=== PATIENT | female | born 1935 | race African-American/Black ===

== ENCOUNTER 2018-03-19 18:12 | Observation (INO) ==
[2018-03-19] MEDS ORDERED: diazePAM 2 MG Tablet PO ONE (18:38)
--- NOTE | 2018-03-19 18:59 | CT ---
EXAM DATE: 03/19/2018 6:53 PM EST AGE/SEX: 82 years / Female INDICATIONS: STROKE ALERT. Double vision. CLINICAL DATA: This is the patient's initial encounter. Patient reports that signs and symptoms have been present for 1 day and indicates a pain score of 0/10. MEDICAL/SURGICAL HISTORY: None. None. RADIATION DOSE: 56.35 CTDI (mGy) COMPARISON: [facility], CTA HEAD W CONTRAST W 3D, 03/19/2018. . TECHNIQUE: CT of the head without contrast. Using automated exposure control and adjustment of the mA and/or kV according to patient size, radiation dose was kept as low as reasonably achievable to ob tain optimal diagnostic quality images. DICOM format image data is available electronically for revi ew and comparison. FINDINGS: Cerebrum: Moderate diffuse cerebral atrophy. The ventricles are normal for degree of atrophy. Modera te periventricular white matter hypodensities. No evidence of midline shift, mass lesion, hemorrhage or acute infarction. No extraaxial fluid collections are seen. Posterior Fossa: The cerebellum and brainstem are intact. The 4th ventricle is midline. The cerebe llopontine angle is unremarkable. Extracranial: The visualized portion of the orbits is intact. Skull: The calvaria is intact. No evidence of skull fracture. CONCLUSION: 1. Senescent changes without acute intracranial abnormality. Findings were discussed by Dr. Alexander with Dr. Garcia at 6:58 PM . Electronically signed by: Jabier Martin MD Board Certified Radiologist 03/19/2018 6:58 PM PHILIPPE Foster
--- NOTE | 2018-03-19 19:03 | ED ---
HPI General Chief complaint: Neuro Symptoms/Deficit Stated complaint: nausea & vomit Time Seen by Provider: 03/19/18 18:38 History of Present Illness HPI narrative: 82-year-old female presents emergency department for sudden onset nausea vomiting and difficulty walking since noon today. States she is never had symptoms like this before and also reports double vision. States she just does not feel right. She has a history of diabetes, high blood pressure cholesterol no history of stroke. States symptoms are severe, started at noon today, constant, associated signs symptoms as above. Interestingly patient does not report any vertiginous symptoms and does not feel like the room is spinning. Related Data Home Medications Medication Instructions Recorded Confirmed amlodipine 10 mg PO DAILY 03/19/18 03/19/18 aspirin 81 mg PO DAILY 03/19/18 03/19/18 brimonidine 1 drp EACH EYE Q12HR 03/19/18 03/19/18 cholecalciferol (vitamin D3) 2,000 unit PO DAILY 03/19/18 03/19/18 [Vitamin D3] gabapentin 600 mg PO DAILY 03/19/18 03/19/18 hydrochlorothiazide 25 mg PO DAILY 03/19/18 03/19/18 hydroxychloroquine [Plaquenil] 200 mg PO DAILY 03/19/18 03/19/18 insulin aspart U-100 [Novolog 5 unit SUBCUT BID 03/19/18 03/19/18 U-100 Insulin aspart] insulin glargine [Lantus U-100 12 unit SUBCUT DAILY 03/19/18 03/19/18 Insulin] losartan 25 mg PO DAILY 03/19/18 03/19/18 lovastatin 20 mg PO HS 03/19/18 03/19/18 pyridoxine (vitamin B6) [Vitamin 100 mg PO DAILY 03/19/18 03/19/18 B-6] timolol maleate [Timoptic] 1 drp EACH EYE DAILY 03/19/18 03/19/18 Allergies Allergy/AdvReac Type Severity Reaction Status Date / Time alendronate sodium Allergy Severe MADE HER Verified 03/19/18 18:53 CRIPPLED, COULN'T GET OUT OF BED lisinopril Allergy Severe COUGH Verified 03/19/18 18:53 meloxicam Allergy Severe Cough Verified 03/19/18 19:19 Review of Systems ROS: all other systems reviewed are negative [facility] Family History Family History Other Family history non-contributory Social History Social History Substance History: No History of Abuse Second Hand Smoke Exposure: No Smoking Status: Never smoker How Often Do You Have a Drink Containing Alcohol: Never Recent Travel in [facility] within the Last 8 Weeks: No Recent Out of Country Travel within the Last 8 Weeks: No Immunization History Tetanus Immunization: Unsure Exam Narrative Exam Narrative: GENERAL: Well-developed well-nourished, appears quite uncomfortable full emesis basin SKIN: Focused skin assessment warm/dry. HEAD: Atraumatic. Normocephalic. EYES: Pupils equal and round. No scleral icterus. No injection or drainage. ENT: No nasal bleeding or discharge. Mucous membranes pink and moist. NECK: Trachea midline. No JVD. CARDIOVASCULAR: Regular rate and rhythm. No murmur appreciated. RESPIRATORY: No accessory muscle use. Clear to auscultation. Breath sounds equal bilaterally. GASTROINTESTINAL: Abdomen soft, non-tender, nondistended. Hepatic and splenic margins not palpable. MUSCULOSKELETAL: No obvious deformities. No clubbing. No cyanosis. No edema. NEUROLOGICAL: Cranial nerves II through XII are grossly intact and nonfocal, the area does appear to be 2 beat horizontal nystagmus and may be one beat vertical nystagmus. Her gjxclv-aauj-[id number] test is slow and deliberate bilaterally but the patient does not have any past pointing or intentional tremor. On heel hubbard testing the patient is able to perform heel hubbard testing but again is slow and deliberate. PSYCHIATRIC: Appropriate mood and affect; insight and judgment normal. Course Initial Documented Vital Signs Temperature 97.5 F L 03/19/18 18:24 Pulse Rate 89 03/19/18 18:24 Respiratory Rate 17 03/19/18 18:24 Blood Pressure 181/82 H 03/19/18 18:24 Pulse Oximetry 100 03/19/18 18:24 Last Documented Vital Signs Temperature 99.3 F 03/20/18 11:19 Pulse Rate 71 03/20/18 11:19 Respiratory Rate 16 03/20/18 11:19 Blood Pressure 144/65 H 03/20/18 11:19 Pulse Oximetry 97 03/20/18 11:19 Sign Out Sign Out Data: Patient Sign Out occurred on 03/19/18 at 22:05. Patient's care was discussed, and care was transferred from Rommel Baeza MD to Bijal Yousif MD. Sign Out Comment: BMP->Admit Obs for possible stroke. Last updated by Rommel Baeza MD at 03/19/18 19:31 Post-Handoff Eval: Accepted in transfer of care from Dr. Baeza Medical Decision Making MDM Narrative Medical decision making narrative: Patient room in the emergency department, she has signs symptoms that could represent vertigo or an acute cerebellar stroke. She is never had vertigo before and she is actually not having any vertiginous symptoms. She just reports ataxia double vision and does have a bag full of emesis. My discretion stroke alert was activated. The patient's creatinine was only 1.5 and I did discuss with her the risk of contrast and I think it is reasonable to pursue a CTA and CT perfusion with this patient. Patient was immediately discussed with Dr. Mc he shares my concern and is in route to see the patient. CT non-con of the head and CTA were negative and discussed with Dr. Alexander. She is not a candidate for systemic TPA given the duration of her symptoms. Valium was ordered as well as an MRI and Dr. Mc will help evaluate the patient as well. At 1930 the patient was discussed with Dr. Yousif to follow-up the workup and Dr. Mc recommendations disposition the patient probably. Total NIH is zero. Accepted in transfer of care from Dr. Baeza; Dr. Mc has seen patient at bedside; Dr. Farah has seen patient at bedside and is excepting patient on the behalf of Dr. See for admission. Patient will be admitted to Dr. See CVA/TIA Medical Screen Exam Complete: Yes Emergency Medical Condition: Yes Lab Data Result diagrams: 03/19/18 18:45 03/19/18 21:47 Lab Results 03/19/18 03/19/18 03/19/18 Range/Units 18:40 18:45 18:45 WBC 8.6 (4.0-11.0) th/mm3 RBC 4.30 (4.00-5.30) mil/mm3 Hgb 12.1 (11.6-15.3) gm/dL POC Hgb (Calc) (11.6-15.3) g/dL Hct 36.9 (35.0-46.0) % POC Hct (35-46.0) % MCV 85.7 (80.0-100.0) fL MCH 28.1 (27.0-34.0) pg MCHC 32.8 (32.0-36.0) % RDW 14.2 (11.6-17.2) % Plt Count 265 (150-450) th/mm3 MPV 8.4 (7.0-11.0) fL Neut % (Auto) 63.7 (16.0-70.0) % Lymph % (Auto) 27.0 (9.0-44.0) % [place] % (Auto) 7.9 (0.0-8.0) % Eos % (Auto) 1.0 (0.0-4.0) % Baso % (Auto) 0.4 (0.0-2.0) % Neut # (Auto) 5.5 (1.8-7.7) th/mm3 Lymph # (Auto) 2.3 (1.0-4.8) th/mm3 [place] # (Auto) 0.7 (0.0-0.9) th/mm3 Eos # (Auto) 0.1 (0.0-0.4) th/mm3 Baso # (Auto) 0.0 (0.0-0.2) th/mm3 WBC Differential . Differential Comment Auto diff final PT 10.7 (9.8-11.6) sec INR 1.1 Ratio APTT 27.6 (23.4-31.7) sec Fibrinogen 446 H (227-377) mg/dL POC Sodium (137-144) mmol/L Sodium (136-145) meq/L POC Potassium (3.6-5.0) mmol/L Potassium (3.5-5.1) meq/L POC Chloride (102-111) mmol/L Chloride (98-107) meq/L Carbon Dioxide (21.0-32.0) meq/L Anion Gap (5-15) meq/L POC BUN (5-21) mg/dL BUN (7-18) mg/dL Creatinine (0.50-1.00) mg/dL POC Creatinine (0.6-1.3) mg/dL Estimated GFR (>89) mL/min POC Glucose 182 H (68-110) mg/dl Random Glucose (74-106) mg/dL Hemoglobin A1c (4.3-6.0) % Calcium (8.5-10.1) mg/dL Total Creatine Kinase (26-192) U/L Troponin I (0.02-0.05) ng/mL Triglycerides (42-150) mg/dL Cholesterol (120-200) mg/dL LDL Cholesterol, Calc (0-99) mg/dL HDL Cholesterol (40.0-60.0) mg/dL Cholesterol/HDL Ratio Ratio Beta HCG, Quant (0-5) mIU/mL Urine Color (Yellw/Straw) Urine Clarity (Clear) Urine pH (5.0-8.5) Ur Specific [place] (1.002-1.035) Urine Protein (Neg-Trace) mg/dL Urine Glucose (UA) (Negative) mg/dL Urine Ketones (Negative) mg/dL Urine Occult Blood (Negative) Urine Nitrate (Negative) Urine Bilirubin (Negative) Urine Urobilinogen (Less than 2) mg/dL Ur Leukocyte Esterase (Negative) Urine RBC (0-3) /hpf Urine WBC (0-5) /hpf Ur Squamous Epith Cells (0-5) /hpf Urine Bacteria (None) /hpf Micro UA Comment Ur Microscopic Review Urine Culture Comments Urine Opiates Screen (Neg) Ur Barbiturates Screen (Neg) Ur Amphetamines Screen (Neg) U Benzodiazepines Scrn (Neg) Urine Cocaine Screen (Neg) U Cannabinoids Screen (Neg) Blood Type Blood Type Recheck Antibody Screen 03/19/18 03/19/18 03/19/18 Range/Units 18:45 18:45 20:34 WBC (4.0-11.0) th/mm3 RBC (4.00-5.30) mil/mm3 Hgb (11.6-15.3) gm/dL POC Hgb (Calc) 12.6 (11.6-15.3) g/dL Hct (35.0-46.0) % POC Hct 37.0 (35-46.0) % MCV (80.0-100.0) fL MCH (27.0-34.0) pg MCHC (32.0-36.0) % RDW (11.6-17.2) % Plt Count (150-450) th/mm3 MPV (7.0-11.0) fL Neut % (Auto) (16.0-70.0) % Lymph % (Auto) (9.0-44.0) % [place] % (Auto) (0.0-8.0) % Eos % (Auto) (0.0-4.0) % Baso % (Auto) (0.0-2.0) % Neut # (Auto) (1.8-7.7) th/mm3 Lymph # (Auto) (1.0-4.8) th/mm3 [place] # (Auto) (0.0-0.9) th/mm3 Eos # (Auto) (0.0-0.4) th/mm3 Baso # (Auto) (0.0-0.2) th/mm3 WBC Differential Differential Comment PT (9.8-11.6) sec INR Ratio APTT (23.4-31.7) sec Fibrinogen (227-377) mg/dL POC Sodium 138 (137-144) mmol/L Sodium (136-145) meq/L POC Potassium 4.4 (3.6-5.0) mmol/L Potassium (3.5-5.1) meq/L POC Chloride 100 L (102-111) mmol/L Chloride (98-107) meq/L Carbon Dioxide (21.0-32.0) meq/L Anion Gap (5-15) meq/L POC BUN 22 H (5-21) mg/dL BUN (7-18) mg/dL Creatinine (0.50-1.00) mg/dL POC Creatinine 1.5 H (0.6-1.3) mg/dL Estimated GFR (>89) mL/min POC Glucose 218 H (68-110) mg/dl Random Glucose (74-106) mg/dL Hemoglobin A1c (4.3-6.0) % Calcium (8.5-10.1) mg/dL Total Creatine Kinase 151 (26-192) U/L Troponin I Less than 0.02 L (0.02-0.05) ng/mL Triglycerides (42-150) mg/dL Cholesterol (120-200) mg/dL LDL Cholesterol, Calc (0-99) mg/dL HDL Cholesterol (40.0-60.0) mg/dL Cholesterol/HDL Ratio Ratio Beta HCG, Quant 4 (0-5) mIU/mL Urine Color (Yellw/Straw) Urine Clarity (Clear) Urine pH (5.0-8.5) Ur Specific [place] (1.002-1.035) Urine Protein (Neg-Trace) mg/dL Urine Glucose (UA) (Negative) mg/dL Urine Ketones (Negative) mg/dL Urine Occult Blood (Negative) Urine Nitrate (Negative) Urine Bilirubin (Negative) Urine Urobilinogen (Less than 2) mg/dL Ur Leukocyte Esterase (Negative) Urine RBC (0-3) /hpf Urine WBC (0-5) /hpf Ur Squamous Epith Cells (0-5) /hpf Urine Bacteria (None) /hpf Micro UA Comment Ur Microscopic Review Urine Culture Comments Urine Opiates Screen Neg (Neg) Ur Barbiturates Screen Neg (Neg) Ur Amphetamines Screen Neg (Neg) U Benzodiazepines Scrn Neg (Neg) Urine Cocaine Screen Neg (Neg) U Cannabinoids Screen Neg (Neg) Blood Type A Positive Blood Type Recheck Not needed Antibody Screen Negative 03/19/18 03/19/18 03/20/18 Range/Units 20:34 21:47 01:33 WBC (4.0-11.0) th/mm3 RBC (4.00-5.30) mil/mm3 Hgb (11.6-15.3) gm/dL POC Hgb (Calc) (11.6-15.3) g/dL Hct (35.0-46.0) % POC Hct (35-46.0) % MCV (80.0-100.0) fL MCH (27.0-34.0) pg MCHC (32.0-36.0) % RDW (11.6-17.2) % Plt Count (150-450) th/mm3 MPV (7.0-11.0) fL Neut % (Auto) (16.0-70.0) % Lymph % (Auto) (9.0-44.0) % [place] % (Auto) (0.0-8.0) % Eos % (Auto) (0.0-4.0) % Baso % (Auto) (0.0-2.0) % Neut # (Auto) (1.8-7.7) th/mm3 Lymph # (Auto) (1.0-4.8) th/mm3 [place] # (Auto) (0.0-0.9) th/mm3 Eos # (Auto) (0.0-0.4) th/mm3 Baso # (Auto) (0.0-0.2) th/mm3 WBC Differential Differential Comment PT (9.8-11.6) sec INR Ratio APTT (23.4-31.7) sec Fibrinogen (227-377) mg/dL POC Sodium (137-144) mmol/L Sodium 136 (136-145) meq/L POC Potassium (3.6-5.0) mmol/L Potassium 4.2 (3.5-5.1) meq/L POC Chloride (102-111) mmol/L Chloride 101 (98-107) meq/L Carbon Dioxide 24.9 (21.0-32.0) meq/L Anion Gap 10 (5-15) meq/L POC BUN (5-21) mg/dL BUN 21 H (7-18) mg/dL Creatinine 1.43 H (0.50-1.00) mg/dL POC Creatinine (0.6-1.3) mg/dL Estimated GFR 43 L (>89) mL/min POC Glucose 154 H (68-110) mg/dl Random Glucose 201 H (74-106) mg/dL Hemoglobin A1c (4.3-6.0) % Calcium 9.2 (8.5-10.1) mg/dL Total Creatine Kinase (26-192) U/L Troponin I (0.02-0.05) ng/mL Triglycerides (42-150) mg/dL Cholesterol (120-200) mg/dL LDL Cholesterol, Calc (0-99) mg/dL HDL Cholesterol (40.0-60.0) mg/dL Cholesterol/HDL Ratio Ratio Beta HCG, Quant (0-5) mIU/mL Urine Color Straw (Yellw/Straw) Urine Clarity Clear (Clear) Urine pH 5.0 (5.0-8.5) Ur Specific [place] 1.022 (1.002-1.035) Urine Protein 30 H (Neg-Trace) mg/dL Urine Glucose (UA) 500 or greater (Negative) mg/dL Urine Ketones Trace H (Negative) mg/dL Urine Occult Blood Small H (Negative) Urine Nitrate Negative (Negative) Urine Bilirubin Negative (Negative) Urine Urobilinogen Less than 2 (Less than 2) mg/dL Ur Leukocyte Esterase Negative (Negative) Urine RBC Less than 1 (0-3) /hpf Urine WBC Less than 1 (0-5) /hpf Ur Squamous Epith Cells <1 (0-5) /hpf Urine Bacteria Rare H (None) /hpf Micro UA Comment Cath-culture ind Ur Microscopic Review Not Reportable Urine Culture Comments Cath-cult indicated Urine Opiates Screen (Neg) Ur Barbiturates Screen (Neg) Ur Amphetamines Screen (Neg) U Benzodiazepines Scrn (Neg) Urine Cocaine Screen (Neg) U Cannabinoids Screen (Neg) Blood Type Blood Type Recheck Antibody Screen 03/20/18 03/20/18 03/20/18 Range/Units 04:11 04:11 08:25 WBC (4.0-11.0) th/mm3 RBC (4.00-5.30) mil/mm3 Hgb (11.6-15.3) gm/dL POC Hgb (Calc) (11.6-15.3) g/dL Hct (35.0-46.0) % POC Hct (35-46.0) % MCV (80.0-100.0) fL MCH (27.0-34.0) pg MCHC (32.0-36.0) % RDW (11.6-17.2) % Plt Count (150-450) th/mm3 MPV (7.0-11.0) fL Neut % (Auto) (16.0-70.0) % Lymph % (Auto) (9.0-44.0) % [place] % (Auto) (0.0-8.0) % Eos % (Auto) (0.0-4.0) % Baso % (Auto) (0.0-2.0) % Neut # (Auto) (1.8-7.7) th/mm3 Lymph # (Auto) (1.0-4.8) th/mm3 [place] # (Auto) (0.0-0.9) th/mm3 Eos # (Auto) (0.0-0.4) th/mm3 Baso # (Auto) (0.0-0.2) th/mm3 WBC Differential Differential Comment PT (9.8-11.6) sec INR Ratio APTT (23.4-31.7) sec Fibrinogen (227-377) mg/dL POC Sodium (137-144) mmol/L Sodium (136-145) meq/L POC Potassium (3.6-5.0) mmol/L Potassium (3.5-5.1) meq/L POC Chloride (102-111) mmol/L Chloride (98-107) meq/L Carbon Dioxide (21.0-32.0) meq/L Anion Gap (5-15) meq/L POC BUN (5-21) mg/dL BUN (7-18) mg/dL Creatinine (0.50-1.00) mg/dL POC Creatinine (0.6-1.3) mg/dL Estimated GFR (>89) mL/min POC Glucose 91 (68-110) mg/dl Random Glucose (74-106) mg/dL Hemoglobin A1c 8.9 H (4.3-6.0) % Calcium (8.5-10.1) mg/dL Total Creatine Kinase (26-192) U/L Troponin I (0.02-0.05) ng/mL Triglycerides 45 (42-150) mg/dL Cholesterol 159 (120-200) mg/dL LDL Cholesterol, Calc 73 (0-99) mg/dL HDL Cholesterol 77.2 H (40.0-60.0) mg/dL Cholesterol/HDL Ratio 2.05 Ratio Beta HCG, Quant (0-5) mIU/mL Urine Color (Yellw/Straw) Urine Clarity (Clear) Urine pH (5.0-8.5) Ur Specific [place] (1.002-1.035) Urine Protein (Neg-Trace) mg/dL Urine Glucose (UA) (Negative) mg/dL Urine Ketones (Negative) mg/dL Urine Occult Blood (Negative) Urine Nitrate (Negative) Urine Bilirubin (Negative) Urine Urobilinogen (Less than 2) mg/dL Ur Leukocyte Esterase (Negative) Urine RBC (0-3) /hpf Urine WBC (0-5) /hpf Ur Squamous Epith Cells (0-5) /hpf Urine Bacteria (None) /hpf Micro UA Comment Ur Microscopic Review Urine Culture Comments Urine Opiates Screen (Neg) Ur Barbiturates Screen (Neg) Ur Amphetamines Screen (Neg) U Benzodiazepines Scrn (Neg) Urine Cocaine Screen (Neg) U Cannabinoids Screen (Neg) Blood Type Blood Type Recheck Antibody Screen 03/20/18 Range/Units 11:47 WBC (4.0-11.0) th/mm3 RBC (4.00-5.30) mil/mm3 Hgb (11.6-15.3) gm/dL POC Hgb (Calc) (11.6-15.3) g/dL Hct (35.0-46.0) % POC Hct (35-46.0) % MCV (80.0-100.0) fL MCH (27.0-34.0) pg MCHC (32.0-36.0) % RDW (11.6-17.2) % Plt Count (150-450) th/mm3 MPV (7.0-11.0) fL Neut % (Auto) (16.0-70.0) % Lymph % (Auto) (9.0-44.0) % [place] % (Auto) (0.0-8.0) % Eos % (Auto) (0.0-4.0) % Baso % (Auto) (0.0-2.0) % Neut # (Auto) (1.8-7.7) th/mm3 Lymph # (Auto) (1.0-4.8) th/mm3 [place] # (Auto) (0.0-0.9) th/mm3 Eos # (Auto) (0.0-0.4) th/mm3 Baso # (Auto) (0.0-0.2) th/mm3 WBC Differential Differential Comment PT (9.8-11.6) sec INR Ratio APTT (23.4-31.7) sec Fibrinogen (227-377) mg/dL POC Sodium (137-144) mmol/L Sodium (136-145) meq/L POC Potassium (3.6-5.0) mmol/L Potassium (3.5-5.1) meq/L POC Chloride (102-111) mmol/L Chloride (98-107) meq/L Carbon Dioxide (21.0-32.0) meq/L Anion Gap (5-15) meq/L POC BUN (5-21) mg/dL BUN (7-18) mg/dL Creatinine (0.50-1.00) mg/dL POC Creatinine (0.6-1.3) mg/dL Estimated GFR (>89) mL/min POC Glucose 137 H (68-110) mg/dl Random Glucose (74-106) mg/dL Hemoglobin A1c (4.3-6.0) % Calcium (8.5-10.1) mg/dL Total Creatine Kinase (26-192) U/L Troponin I (0.02-0.05) ng/mL Triglycerides (42-150) mg/dL Cholesterol (120-200) mg/dL LDL Cholesterol, Calc (0-99) mg/dL HDL Cholesterol (40.0-60.0) mg/dL Cholesterol/HDL Ratio Ratio Beta HCG, Quant (0-5) mIU/mL Urine Color (Yellw/Straw) Urine Clarity (Clear) Urine pH (5.0-8.5) Ur Specific [place] (1.002-1.035) Urine Protein (Neg-Trace) mg/dL Urine Glucose (UA) (Negative) mg/dL Urine Ketones (Negative) mg/dL Urine Occult Blood (Negative) Urine Nitrate (Negative) Urine Bilirubin (Negative) Urine Urobilinogen (Less than 2) mg/dL Ur Leukocyte Esterase (Negative) Urine RBC (0-3) /hpf Urine WBC (0-5) /hpf Ur Squamous Epith Cells (0-5) /hpf Urine Bacteria (None) /hpf Micro UA Comment Ur Microscopic Review Urine Culture Comments Urine Opiates Screen (Neg) Ur Barbiturates Screen (Neg) Ur Amphetamines Screen (Neg) U Benzodiazepines Scrn (Neg) Urine Cocaine Screen (Neg) U Cannabinoids Screen (Neg) Blood Type Blood Type Recheck Antibody Screen Imaging Data Radiologist's impression: Head MRA 03/19/18 00:00 CONCLUSION: 1. Negative for major branch vessel occlusion 2. No significant atherosclerotic disease. Chest X-Ray 03/19/18 18:34 CONCLUSION: Head CT 03/19/18 18:34 CONCLUSION: 1. Senescent changes without acute intracranial abnormality. Findings were discussed by Dr. Alexander with Dr. Garcia at 6:58 PM . Head CTA 03/19/18 18:34 CONCLUSION: 1. Hypoplastic versus moderately stenosed proximal left JANITORIAL MANAGER at the origin of the basilar artery. There is a robust left P-comm supplying the left JANITORIAL MANAGER beyond this. 2. Otherwise, no evidence for large vessel occlusion. Report was called by [ ]Dr. Alexander to Dr. Mc at 1905 p.m. Neck CTA 03/19/18 18:34 CONCLUSION: 1. No hemodynamically significant carotid or vertebral artery stenosis. Head MRI 03/19/18 18:42 CONCLUSION: 1. Senescent changes with moderate periventricular ischemic white matter demyelination. 2. No acute infarction as questioned. Discharge Plan Discharge Disposition Patient Disposition: ED Admit(ED Internal Use Only) Discharge Condition Condition: Stable Discharge Order Discharge Orders: Discharge Order (Routine); Ordered 03/20/18 Ordered By: Yun Fatima ED Use Only Admit Order (Routine); Ordered 03/19/18 Ordered By: Bijal Yousif Discharge Details Anticipated Discharge Date: 03/20/18 Discharge Comment: Followup with Dr. Rodriguez in 1 week, call for that appt Followup with Dr. Mc in 2 weeks, call for that appt. Diagnosis: CVA (cerebrovascular accident) Physicians Team ED Provider: Bijal Yousif Primary Care Provider: UNKNOWN, Attending Provider: Abdulaziz See Other Providers: Charlie Fisher ; [facility],Agency Status ED Status: Left Department Discharge Information Discharge Date/Time: 03/19/18 23:08
[2018-03-19] MEDS: Sod Chloride 0.9% Inj 1,000 ML IV.CONT SCH (19:04)
[2018-03-19 19:05] LABS: Baso % (Auto) 0.4 % (0.0-2.0); Eos # (Auto) 0.1 th/mm3 (0.0-0.4); Hematocrit 36.9 % (35.0-46.0); Hemoglobin 12.1 gm/dL (11.6-15.3); Lymph # (Auto) 2.3 th/mm3 (1.0-4.8); Mean Corpuscular HGB Conc 32.8 % (32.0-36.0); Mean Corpuscular Hemoglobin 28.1 pg (27.0-34.0); Mean Corpuscular Volume 85.7 fL (80.0-100.0); Mean Platelet Volume 8.4 fL (7.0-11.0); Mono # (Auto) 0.7 th/mm3 (0.0-0.9); Mono % (Auto) 7.9 % (0.0-8.0); Neut # (Auto) 5.5 th/mm3 (1.8-7.7); Neut % (Auto) 63.7 % (16.0-70.0); Platelet Count 265 th/mm3 (150-450); Red Cell Distribution Width 14.2 % (11.6-17.2); White Blood Count 8.6 th/mm3 (4.0-11.0)
--- NOTE | 2018-03-19 19:08 | CT ---
EXAM DATE: 03/19/2018 7:00 PM EST AGE/SEX: 82 years / Female INDICATIONS: STROKE ALERT. Double vision. CLINICAL DATA: This is the patient's initial encounter. Patient reports that signs and symptoms have been present for 1 day and indicates a pain score of 0/10. MEDICAL/SURGICAL HISTORY: None. None. RADIATION DOSE: 9.76 CTDI (mGy) COMPARISON: No prior exams available for comparison. TECHNIQUE: Volumetric scanning was performed using a multi-row detector CT scanner during bolus infu erin of 80 ml Visipaque 320 (iodixanol) nonionic water-soluble contrast as a single exam dose. The data was post processed with a variety of visualization algorithms including full volume maximum int ensity projection, multi-planar sliding thin slab reformation, curved planar reformation, and surface rendering techniques. Using automated exposure control and adjustment of the mA and/or kV according to patient size, radiation dose was kept as low as reasonably achievable to obtain optimal diagnosti c quality images. DICOM format image data is available electronically for review and comparison. FINDINGS: Anterior Circulation: Intracranial Carotid Arteries: Patent. LEEANNA: There is no evidence for aneurysm, vessel truncation or stenosis, and no evidence for vascular m alformation. MCA: There is no evidence for aneurysm, vessel truncation or stenosis, and no evidence for vascular m alformation. Posterior Circulation: Distal Vertebral Arteries: Distal Vertebral arteries are symetrical and patent. Basilar Artery: Small in caliber but otherwise patent without focal hemodynamic significant stenosis or occlusion. CAN FILLING AND CLOSING MACHINE TENDER and Cerebellar Branches: origin the right CAN FILLING AND CLOSING MACHINE TENDER. Moderate stenosis versus hypoplasia of the p roximal CAN FILLING AND CLOSING MACHINE TENDER arising from the basilar with robust left P-comm. There is no evidence for aneurysm, vess el truncation or stenosis, and no evidence for vascular malformation. CONCLUSION: 1. Hypoplastic versus moderately stenosed proximal left CAN FILLING AND CLOSING MACHINE TENDER at the origin of the basilar artery. The re is a robust left P-comm supplying the left CAN FILLING AND CLOSING MACHINE TENDER beyond this. 2. Otherwise, no evidence for large vessel occlusion. Report was called by [ ]Dr. Alexander to Dr. Mc at 1905 p.m. Electronically signed by: Jabier Martin MD Board Certified Radiologist 03/19/2018 7:07 PM PHILIPPE Foster
--- NOTE | 2018-03-19 19:18 | XR ---
EXAM DATE: 03/19/2018 7:12 PM EST AGE/SEX: 82 years / Female INDICATIONS: Stroke alert. CLINICAL DATA: This is the patient's initial encounter. Patient reports that signs and symptoms have been present for 1 day and indicates a pain score of Nonresponsive. MEDICAL/SURGICAL HISTORY: None. None. COMPARISON: [facility] [place], CHEST SINGLE AP, 10/03/2014. . FINDINGS: A single AP view of the chest demonstrates the lungs to be symmetrically aerated without evidence of mass, infiltrate or effusion. Mild compensated cardiomegaly. Osseous structures are intact. CONCLUSION: Electronically signed by: Mayo Irby MD Board Certified Radiologist 03/19/2018 7:17 PM EST
[2018-03-19 19:20] LABS: Activated Partial Thrombo Time 27.6 sec (23.4-31.7); INR 1.1 Ratio; Prothrombin Time 10.7 sec (9.8-11.6)
[2018-03-19 19:27] LABS: Beta HCG,Quantitative 4 mIU/mL (0-5); Creatine Kinase 151 U/L (26-192)
--- NOTE | 2018-03-19 19:33 | CT ---
EXAM DATE: 03/19/2018 7:28 PM EST AGE/SEX: 82 years / Female INDICATIONS: STROKE ALERT. Double vision. CLINICAL DATA: This is the patient's initial encounter. Patient reports that signs and symptoms have been present for 1 day and indicates a pain score of 1/10. MEDICAL/SURGICAL HISTORY: None. None. RADIATION DOSE: 9.76 CTDI (mGy) COMPARISON: No prior exams available for comparison. TECHNIQUE: Volumetric scanning was performed using a multirow detector CT scanner during bolus infus ion of 80 ml Visipaque 320 (iodixanol) nonionic water-soluble contrast as a cumulative dose for mult iple exams. The data was postprocessed with a variety of visualization algorithms including full-vo lume maximum intensity projection, multiplanar sliding thin-slab reformation, curved-planar reformati on, and surface-rendering techniques. Using automated exposure control and adjustment of the mA and/ or kV according to patient size, radiation dose was kept as low as reasonably achievable to obtain op timal diagnostic quality images. DICOM format image data is available electronically for review and comparison. Percent stenosis is calculated using the diameter of the stenotic region over the diameter of the nor mal distal internal carotid artery. FINDINGS: Aortic Arch: There is two-vessel bovine type arch anatomy. No evidence of ostial narrowing Right Carotid: The common carotid artery is intact. Minimal mixed plaque at the distal bulb extendin g to the origin of the internal carotid artery with resultant less than 10% stenosis. Internal caroti d arteries otherwise patent to the skull base.. The external carotid artery is intact. Left Carotid: The common carotid artery is intact. Minimal eccentric noncalcified plaque in the bulb extending to the origin of the internal carotid artery with resultant less than 10% stenosis. Electrical Cad Designer al carotid artery is otherwise patent to the skull base. The external carotid artery is intact. Vertebrals: The vertebral arteries have a symmetric diameter. No stenotic lesions are seen. General Findings: Lung apices are clear. Thyroid is unremarkable by CT. No significant adenopathy. CONCLUSION: 1. No hemodynamically significant carotid or vertebral artery stenosis. Electronically signed by: Jabier Martin MD Board Certified Radiologist 03/19/2018 7:32 PM PHILIPPE Foster
[2018-03-19] MEDS ORDERED: Insulin NovoLOG Aspart Correctional Sugar Inj SQ PRN (20:05)
[2018-03-19] MEDS ORDERED: Dextrose 50% in Water 50 ML Vial IV.PUSH PRN (20:05)
--- NOTE | 2018-03-19 20:05 | P.HP ---
History of Present Illness Service: [facility] Adult med Primary Care Physician: UNKNOWN Chief Complaint: acute onset n/v, ataxia History of Present Illness: 82-year-old female with DM and HTN presents to the emergency department for sudden onset nausea vomiting and difficulty walking since noon today. States she has never had symptoms like this before and also reports double vision. States she just did not feel right. States symptoms are severe, started at noon today after she returned home from her typical AM Bible study. She was not confused and was able to recount Bible passage from [facility] that she was studying. No f/c. No headache. She had significant n/v which has improved now. Vision has returned to nml as well. NO focal weakness, slurred speech or facial droop per pt's who has been with her since she started having the n/v, ataxia earlier today. No recent head trauma or med changes. No unusual activities or travel. Interestingly patient does not report any vertiginous symptoms and does not feel like the room is spinning. Thus far imaging has been unrevealing, but she has been evaluated by Dr Mc at bedside per family report and ER physician report. Denies CP or palpitations. 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 5 children - Diagnosis (1) Neurological deficit, transient (2) Diabetes (3) Hypercholesteremia (4) Hypertension Review of Systems Constitutional: Reports fatigue Eyes: Reports blurry vision, Reports change in vision, Reports double vision Ears, Nose, Mouth, and Throat: Denies abnormal hearing, Denies bleeding gums, Denies bad breath, Denies change in voice, Denies dental pain, Denies difficulty swallowing, Denies dizziness, Denies dry mouth, Denies ear discharge , Denies ear pain, Denies facial pain, Denies headache(s), Denies hearing loss, Denies hoarseness, Denies lip swelling, Denies nosebleed, Denies mouth lesions, Denies mouth pain, Denies nasal congestion, Denies nasal discharge, Denies nasal obstruction, Denies nasal trauma, Denies neck lump, Denies neck pain, Denies nose pain, Denies pain with swallowing, Denies poor balance, Denies post nasal drip, Denies ringing in the ears, Denies sinus pain, Denies sinus pressure , Denies sore throat, Denies throat swelling, Denies tongue swelling, Denies other Cardiovascular: Denies chest pain, Denies chest pain at rest, Denies chest pain with activity, Denies excessive sweating, Denies fainting, Denies fast heart rate, Denies foot swelling, Denies generalized swelling, Denies irregular heart rhythm, Denies leg pain with activity, Denies leg sores, Denies leg swelling, Denies lightheadedness, Denies radiating jaw, neck or arm pain, Denies rapid, pounding, or irregular heartbeat, Denies shortness of breath, Denies shortness of breath with activity, Denies shortness of breath when lying down, Denies shortness of breath causing sudden awakening, Denies slow heart rate, Denies other Respiratory: Denies change in phlegm color, Denies chest congestion, Denies cough, Denies coughing up blood, Denies excessive phlegm production, Denies pain on inspiration, Denies pain with cough, Denies shortness of breath, Denies shortness of breath with activity, Denies snoring, Denies stridor, Denies wheezing, Denies other Gastrointestinal: Reports heartburn, Reports nausea, Reports vomiting, Denies abdominal pain, Denies belching, Denies black, tarry stools, Denies bloating, Denies bright, red blood in stools, Denies change in bowel habits, Denies constant urge to pass stool, Denies change in stools, Denies coffee ground vomit , Denies constipation, Denies cramping, Denies difficulty swallowing, Denies excessive passing of gas, Denies feeling full early, Denies incontinent of stools, Denies loose stools, Denies pain with swallowing, Denies vomiting blood , Denies other Musculoskeletal: Reports abnormal walking Neurologic: Reports abnormal walking, Reports dizziness, Reports tingling/ numbness/burning sensations, Reports unsteadiness, Denies abnormal hearing, Denies abnormal movements, Denies abnormal speech, Denies behavioral changes, Denies burning sensations, Denies confusion, Denies fainting, Denies frequent falls, Denies headache(s), Denies lack of coordination, Denies localized weakness, Denies loss of vision, Denies memory loss, Denies numbness, Denies other visual disturbances, Denies radiating pain, Denies restless legs, Denies convulsions, Denies seizure-like activity, Denies sensory deficit, Denies tingling, Denies tremor(s), Denies weakness, Denies other Psychiatric: Reports anxiety PMFSH - History History Provided By: Patient, Family Member - Medical / Surgical Hx Neg / Unobtainable Surgical History: No Previous Surgery - Medical History Medical History: Medical History (Last Updated 03/19/18 @ 20:02 by Juanjo Farah MD, PhD) Hypercholesteremia (Acute) Hypertension (Acute) Diabetes (Acute) Lupus - Surgical History Surgical History: Surgical History (Last Updated 03/19/18 @ 18:51 by Amaya Nunes) No history of previous surgery - Family History Family History: Family History (Last Updated 03/19/18 @ 20:00 by Juanjo Farah MD, PhD) Other Family history non-contributory - Social History I have reviewed the patient's Social History: Yes - Tobacco History Tobacco Use In Past 30 Days: No Smoking Status: Never smoker - Alcohol History How Often Do You Have a Drink Containing Alcohol: Never - Substance Use History Substance History: No History of Abuse - Travel History Recent Travel in the [place] Within the Last 8 Weeks: No Recent Travel Out of the Country Within the Last 8 Weeks: No - Immunization History Tetanus Immunization: Unsure Medications and Allergies Active Medications: Active Medications Sodium Chloride (Ns Inj) 1,000 mls @ 70 mls/hr IV.CONT .[id number] PIENDA Last Admin: 03/19/18 19:04 Dose: 70 mls/hr Allergies Allergy/AdvReac Type Severity Reaction Status Date / Time alendronate sodium Allergy Severe MADE HER Verified 03/19/18 18:53 CRIPPLED, COULN'T GET OUT OF BED lisinopril Allergy Severe COUGH Verified 03/19/18 18:53 meloxicam Allergy Severe Cough Verified 03/19/18 19:19 Home Medications Medication Instructions Recorded Confirmed Type amlodipine 10 mg PO DAILY 03/19/18 03/19/18 History aspirin 81 mg PO DAILY 03/19/18 03/19/18 History brimonidine 1 drp EACH EYE Q12HR 03/19/18 03/19/18 History cholecalciferol (vitamin D3) 2,000 unit PO DAILY 03/19/18 03/19/18 History [Vitamin D3] gabapentin 600 mg PO DAILY 03/19/18 03/19/18 History hydrochlorothiazide 25 mg PO DAILY 03/19/18 03/19/18 History hydroxychloroquine [Plaquenil] 200 mg PO DAILY 03/19/18 03/19/18 History insulin aspart U-100 [Novolog 5 unit SUBCUT BID 03/19/18 03/19/18 History U-100 Insulin aspart] insulin glargine [Lantus U-100 12 unit SUBCUT DAILY 03/19/18 03/19/18 History Insulin] losartan 25 mg PO DAILY 03/19/18 03/19/18 History lovastatin 20 mg PO HS 03/19/18 03/19/18 History pyridoxine (vitamin B6) [Vitamin 100 mg PO DAILY 03/19/18 03/19/18 History B-6] timolol maleate [Timoptic] 1 drp EACH EYE DAILY 03/19/18 03/19/18 History Exam Vital signs: Vital Signs 03/19/18 18:24 03/19/18 18:48 03/19/18 18:50 Temperature 97.5 F L Pulse Rate 89 88 Respiratory Rate 17 Blood Pressure 181/82 H Pulse Oximetry 100 100 Intake & Output 03/19/18 03/19/18 03/20/18 06:59 18:59 06:59 Weight 85.729 kg Narrative: GENERAL: NAD, a/o, pleasant and cooperative. SKIN: Warm and dry. HEAD: Atraumatic. Normocephalic. EYES: Pupils equal and round. No scleral icterus. No injection or drainage. ENT: No nasal bleeding or discharge. Mucous membranes pink and moist. Some dried blood on post palate NECK: Trachea midline. No JVD. no bruit CARDIOVASCULAR: Regular rate and rhythm. No significant murmur RESPIRATORY: No accessory muscle use. Clear to auscultation. Breath sounds equal bilaterally. GASTROINTESTINAL: Abdomen soft, non-tender, nondistended. Hepatic and splenic margins not palpable. bs wnl MUSCULOSKELETAL: Extremities without clubbing, cyanosis, or edema. No obvious deformities. NEUROLOGICAL: Awake and alert. No obvious cranial nerve deficits. Motor grossly within normal limits. Five out of 5 muscle strength in the arms and legs. Normal speech. PSYCHIATRIC: Appropriate mood and affect; insight and judgment normal. Results - Labs CBC & Chem 7: 03/19/18 18:45 Labs: Laboratory Results - last 24 hr 03/19/18 03/19/18 03/19/18 18:40 18:45 18:45 WBC 8.6 RBC 4.30 Hgb 12.1 POC Hgb (Calc) Hct 36.9 POC Hct MCV 85.7 MCH 28.1 MCHC 32.8 RDW 14.2 Plt Count 265 MPV 8.4 Neut % (Auto) 63.7 Lymph % (Auto) 27.0 [place] % (Auto) 7.9 Eos % (Auto) 1.0 Baso % (Auto) 0.4 Neut # (Auto) 5.5 Lymph # (Auto) 2.3 [place] # (Auto) 0.7 Eos # (Auto) 0.1 Baso # (Auto) 0.0 WBC Differential . Differential Comment Auto diff final PT 10.7 INR 1.1 APTT 27.6 Fibrinogen 446 H POC Sodium POC Potassium POC Chloride POC BUN POC Creatinine POC Glucose 182 H Total Creatine Kinase Troponin I Beta HCG, Quant Blood Type Blood Type Recheck Antibody Screen 03/19/18 12 18:45 18:45 WBC RBC Hgb POC Hgb (Calc) 12.6 Hct POC Hct 37.0 MCV MCH MCHC RDW Plt Count MPV Neut % (Auto) Lymph % (Auto) [place] % (Auto) Eos % (Auto) Baso % (Auto) Neut # (Auto) Lymph # (Auto) [place] # (Auto) Eos # (Auto) Baso # (Auto) WBC Differential Differential Comment PT INR APTT Fibrinogen POC Sodium 138 POC Potassium 4.4 POC Chloride 100 L POC BUN 22 H POC Creatinine 1.5 H POC Glucose 218 H Total Creatine Kinase 151 Troponin I Less than 0.02 L Beta HCG, Quant 4 Blood Type A Positive Blood Type Recheck Not needed Antibody Screen Negative - Imaging Impressions Chest X-Ray 03/19/18 18:34 CONCLUSION: Head CT 03/19/18 18:34 CONCLUSION: 1. Senescent changes without acute intracranial abnormality. Findings were discussed by Dr. Alexander with Dr. Garcia at 6:58 PM . Head CTA 03/19/18 18:34 CONCLUSION: 1. Hypoplastic versus moderately stenosed proximal left [employer]ANCH GENERAL MANAGER at the origin of the basilar artery. There is a robust left P-comm supplying the left [employer]CH GENERAL MANAGER beyond this. 2. Otherwise, no evidence for large vessel occlusion. Report was called by [ ]Dr. Alexander to Dr. Mc at 1905 p.m. Neck CTA 03/19/18 18:34 CONCLUSION: 1. No hemodynamically significant carotid or vertebral artery stenosis. Caprini VTE Risk Assessment Caprini VTE Risk Assessment: Moderate/High Risk (score >= 2) Caprini Risk Assessment Model: Point Value = 1 Point Value = 2 Point Value = 3 Point Value = 5 Age 41-60 Minor surgery BMI > 25 kg/m2 Swollen legs Varicose veins or History of unexplained or recurrent spontaneous Oral contraceptives or hormone replacement Sepsis (< 1 month) Serious lung disease, including pneumonia (< 1 month) Abnormal pulmonary function Acute myocardial infarction Congestive heart failure (< 1 month) History of inflammatory bowel disease Medical patient at bed rest Age 61-74 Arthroscopic surgery Major open surgery (> 45 min) Laparoscopic surgery (> 45 min) Malignancy Confined to bed (> 72 hours) Immobilizing plaster cast Central venous access Age >= 75 History of VTE Family history of VTE Factor V Leiden Prothrombin [id number] Lupus anticoagulant Anticardiolipin antibodies Elevated serum homocysteine Heparin-induced thrombocytopenia Other congenital or acquired thrombophilia Stroke (< 1 month) Elective arthroplasty Hip, pelvis, or leg fracture Acute spinal cord injury (< 1 month) Prophylaxis Regimen: Total Risk Factor Score Risk Level Prophylaxis Regimen 0-1 Low Early ambulation 2 Moderate Order ONE of the following: *Sequential Compression Device (SCD) *Heparin 5000 units SQ BID 3-4 Higher Order ONE of the following medications: *Heparin 5000 units SQ TID *Enoxaparin/Lovenox 40 mg SQ daily (WT < 150 kg, CrCl > 30 mL/min) *Enoxaparin/Lovenox 30 mg SQ daily (WT < 150 kg, CrCl > 10-29 mL/min) *Enoxaparin/Lovenox 30 mg SQ BID (WT < 150 kg, CrCl > 30 mL/min) AND/OR *Sequential Compression Device (SCD) 5 or more Highest Order ONE of the following medications: *Heparin 5000 units SQ TID (Preferred with Epidurals) *Enoxaparin/Lovenox 40 mg SQ daily (WT < 150 kg, CrCl > 30 mL/min) *Enoxaparin/Lovenox 30 mg SQ daily (WT < 150 kg, CrCl > 10-29 mL/min) *Enoxaparin/Lovenox 30 mg SQ BID (WT < 150 kg, CrCl > 30 mL/min) AND *Sequential Compression Device (SCD) Assessment and Plan - Assessment (1) Neurological deficit, transient Code(s): R29.818 - Other symptoms and signs involving the nervous system Status: Acute Plan: clinically improving. No ambulation attempted. Will continue to monitor Tele, check MRI, echo. PT eval. Antiemetics. (2) Diabetes Code(s): E11.9 - Type 2 diabetes mellitus without complications Status: Chronic Onset Date: 1960 Plan: SSI, accucheck (3) Hypercholesteremia Code(s): E78.00 - Pure hypercholesterolemia, unspecified Status: Chronic Plan: continue rx. check lab (4) Hypertension Code(s): I10 - Essential (primary) hypertension Status: Acute Plan: permissive HTN. Treat BP only if >200/105 - Plan Code Status: full Discussed Condition With: Pt, her and ER provider (4) Hypertension Qualifiers: Hypertension type: essential hypertension Qualified Code(s): I10 - Essential (primary) hypertension
--- NOTE | 2018-03-19 20:13 | MR ---
EXAM DATE: 03/19/2018 8:06 PM EST AGE/SEX: 82 years / Female INDICATIONS: CVA. Blurred vision and unsteady gait. CLINICAL DATA: This is the patient's initial encounter. Patient reports that signs and symptoms have been present for 1 day and indicates a pain score of 0/10. MEDICAL/SURGICAL HISTORY: Diabetes mellitus type II. . Cataracts. COMPARISON: No prior exams available for comparison. TECHNIQUE: Multiplanar, multisequence examination of the brain was performed without contrast. FINDINGS: Cerebrum: The ventricles are normal for age. No evidence of midline shift, mass lesion, hemorrhage or acute infarction. No extraaxial fluid collections are seen. The pituitary gland and suprasellar cistern are normal in configuration. White Matter: Moderate periventricular and focal deep white matter T2 prolongation. Posterior Fossa: The cerebellum and brainstem are intact. The 4th ventricle is midline. The cerebel lopontine angle is unremarkable. The cerebellar tonsils are normal in position. Diffusion Imaging: No focal areas of restricted diffusion are seen. No evidence of acute infarction . Extracranial: The visualized portions of the orbits and paranasal sinuses are unremarkable. CONCLUSION: 1. Senescent changes with moderate periventricular ischemic white matter demyelination. 2. No acute infarction as questioned. Electronically signed by: Jabier Martin MD Board Certified Radiologist 03/19/2018 8:11 PM PHILIPPE Foster
[2018-03-19 21:08] LABS: Bacteria,Urine Rare /hpf; Bilirubin,Urine Negative (Negative); Clarity,Urine Clear (Clear); Color,Urine Straw (Yellw/Straw); Glucose,Urine (UA) 500 or Greater mg/dL (Negative); Leukocyte Esterase,Urine Negative (Negative); Nitrite,Urine Negative (Negative); Specific Gravity,Urine 1.022 (1.002-1.035); Squamous Epithelial Cell,Urine <1 /hpf (0-5)
--- NOTE | 2018-03-19 21:08 | MR ---
EXAM DATE: 03/19/2018 9:05 PM EST AGE/SEX: 82 years / Female INDICATIONS: CVA. Blurred vision and unsteady gait. CLINICAL DATA: This is the patient's initial encounter. Patient reports that signs and symptoms have been present for 1 day and indicates a pain score of 0/10. MEDICAL/SURGICAL HISTORY: Diabetes mellitus type II. Hypertension. . Cataracts. COMPARISON: [facility] – [place], [place] HEAD W/O CONTRAST, 03/19/2018. . TECHNIQUE: 3D [id number] MRA was performed. Source images, multiplanar STS MIP, and 3D volum e MIP reconstructions were reviewed. FINDINGS: There is excellent visualization of the major intracranial arteries out to the second-order branch ve ssels. There is no evidence for aneurysm, vessel truncation or stenosis, and no evidence for vascula r malformation. CONCLUSION: 1. Negative for major branch vessel occlusion 2. No significant atherosclerotic disease. Electronically signed by: Mayo Irby MD Board Certified Radiologist 03/19/2018 9:06 PM EST
[2018-03-19 21:13] LABS: Amphetamine Screen,Urine Neg (Neg); Barbiturate Screen,Urine Neg (Neg); Cannabinoid Screen,Urine Neg (Neg); Cocaine Screen,Urine Neg (Neg)
[2018-03-19 21:22] LABS: Opiate Screen,Urine Neg (Neg)
--- NOTE | 2018-03-19 21:25 | MB ---
cc: Charles Mc MD, PhD DATE: 03/19/2018 REASON FOR CONSULTATION: Stroke alert. HISTORY OF PRESENT ILLNESS: Ms. Wayne is a very nice 82-year-old woman who has a history of diabetes and hypertension, who was in her usual state of health today until around noontime when she had sudden onset of severe unsteadiness of gait and double vision. She states she has not had this before. She denies vertigo, i.e., a spinning sensation. She did relate nausea, vomiting, double vision. She would tend to stagger when she walked five paces to the right side or the left side. She did not have any tinnitus. No hearing loss or other neurological complaints. PAST MEDICAL HISTORY: Remarkable for insulin-dependent diabetes, hypertension, hypercholesterolemia, history of lupus. MEDICINES AT HOME: She does take aspirin 81 mg daily. She is not on any anticoagulants. NEUROLOGICAL EXAMINATION: VITAL SIGNS: Her blood pressure is 181/82, pulse is 88, respirations 16. HIGHER CORTICAL FUNCTIONS: Normal. Cranial nerves are intact. Pupils equal and reactive. The extraocular movements are intact. She does have some nystagmus which is horizontal in right gaze. There is no facial asymmetry. Motor exam is 5/5 strength of all groups in the upper and lower extremities. There is no drift. Fine motor skills normal. Reflexes are symmetric. Cerebral testing is normal. No dysmetria. CT brain negative. CT angiogram of the brain, no evidence for any large vessel occlusion. There is a hypoplastic versus moderately stenotic left COOK ICE CREAM at the origin of the basilar artery, but there is good filling through of the left COOK ICE CREAM. No evidence of any basilar artery thrombus is identified. She had a CTA of the neck done as well, which is within normal limits. No evidence of any vertebral artery, or carotid artery stenosis. CT head, no acute change present. LABORATORY DATA: The white count of 8600, hemoglobin 12.1, hematocrit 36.9%. The PT is 10.7, INR 1.1, APTT 27.6. Sodium is 138, potassium 4.4, chloride 100, BUN is 22, creatinine 1.5, glucose is 218. CPK 151. IMPRESSION: Unsteadiness of gait, possible vertebrobasilar stroke versus peripheral vertigo. The absence of true vertigo and the double vision suggests the possibility of stroke. She is not a candidate for TPA due to the timing. She is not a candidate for intervention. There is no evidence of any large vessel occlusion. RECOMMENDATIONS: MRI of the brain will be helpful in trying to differentiate between the two diagnoses. Continue aspirin. Charles Mc MD, PhD ELIS/ct , 07:38 PM , 07:46 PM
[2018-03-19] MEDS: Brimonidine 0.2% Opth Drops 5 ML Bottle EACH EYE SCH (21:42)
[2018-03-19 22:47] LABS: Calcium 9.2 mg/dL (8.5-10.1); Carbon Dioxide 24.9 meq/L (21.0-32.0); Potassium 4.2 meq/L (3.5-5.1)
[2018-03-20 05:24] LABS: Chol/HDL Ratio 2.05 Ratio; HDL Cholesterol 77.2 mg/dL (40.0-60.0)
--- NOTE | 2018-03-20 07:21 | ECG ---
Date Performed: 03/19/2018 Time Performed: 18:43:23 PTAGE: 82 years EKG: Sinus rhythm BORDERLINE LEFT AXIS DEVIATION VOLTAGE CRITERIA FOR LVH NONSPECIFIC T-WAVE ABNORMALITY ABNORMAL ECG NO PREVIOUS TRACING DOCTOR: Iván Ferguson Interpretating Date/Time 03/20/2018 07:18:53
[2018-03-20 07:55] VITALS: RESP 16
[2018-03-20] MEDS: Brimonidine 0.2% Opth Drops 5 ML Bottle EACH EYE SCH (08:26)
[2018-03-20] MEDS: Sod Chloride 0.9% Inj 1,000 ML IV.CONT SCH (08:33)
[2018-03-20] MEDS ORDERED: Gabapentin 300 MG Capsule PO SCH (09:00)
[2018-03-20] MEDS ORDERED: Timolol 0.5% Drops 5 ML Bottle EACH EYE SCH (09:00)
[2018-03-20] MEDS ORDERED: Hydroxychloroquine 200 MG Tablet PO SCH (09:00)
--- NOTE | 2018-03-20 10:15 | P.PNIM ---
Subjective Interval history: Pt reports that she is still having some double vision when she is using both eyes If she ones either eye the double vision improves Physical Exam Vital signs: Last Vital Signs Temp 99.2 F 03/20/18 07:54 Pulse 70 03/20/18 07:54 Resp 16 03/20/18 07:54 BP 159/68 H 03/20/18 07:54 Pulse Ox 96 03/20/18 07:54 Narrative: GENERAL: NAD, AAOx3 HEENT: Normocephalic. No scleral icterus. No injection or drainage. Left eye does not track medially when looking to the right side CARDIO: Regular RESP: CTA bilaterally. No accessory muscle use. ABD: +BS, soft, non-tender, nondistended. EXT: No cyanosis, or edema. Results Labs CBC & Chem 7: 03/19/18 18:45 03/19/18 21:47 Imaging Head MRA 03/19/18 00:00 CONCLUSION: 1. Negative for major branch vessel occlusion 2. No significant atherosclerotic disease. Chest X-Ray 03/19/18 18:34 CONCLUSION: Head CT 03/19/18 18:34 CONCLUSION: 1. Senescent changes without acute intracranial abnormality. Head CTA 03/19/18 18:34 CONCLUSION: 1. 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 There is a robust left P-comm supplying the left TRANSPLANT RN beyond this. 2. Otherwise, no evidence for large vessel occlusion. Neck CTA 03/19/18 18:34 CONCLUSION: 1. No hemodynamically significant carotid or vertebral artery stenosis. Head MRI 03/19/18 18:42 CONCLUSION: 1. Senescent changes with moderate periventricular ischemic white matter demyelination. 2. No acute infarction as questioned. Assessment and Plan Assessment (1) Neurological deficit, transient: Code(s): R29.818 - Other symptoms and signs involving the nervous system Status: Acute (2) Diabetes: Code(s): E11.9 - Type 2 diabetes mellitus without complications Status: Chronic Onset Date: 1960 (3) Hypercholesteremia: Code(s): E78.00 - Pure hypercholesterolemia, unspecified Status: Chronic (4) Hypertension: Code(s): I10 - Essential (primary) hypertension Status: Acute Plan CN 3 Palsy Double vision N/V - Pt is an 82 y/o female with DM and HTN who presented to the ED at [facility] – [place], [place] on 03/19 for sudden onset nausea/vomiting, double vision and difficulty walking that started at about noon on the day of admission. Her N/V improved following arrival to the ED. NO focal weakness, slurred speech or facial droop. No vertiginous symptoms. - Imaging studies included: - Head CT (03/19/18: --> Senescent changes without acute intracranial abnormality. - Head CTA (03/19/18) 1. 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 There is a robust left P-comm supplying the left TRANSPLANT RN beyond this. 2. Otherwise, no evidence for large vessel occlusion. - Neck CTA (03/19/18)--> No hemodynamically significant carotid or vertebral artery stenosis. - Head MRI (03/19/18--> Senescent changes with moderate periventricular ischemic white matter demyelination. No acute infarction as questioned. - Head MRA (03/19/18)--> Negative for major branch vessel occlusion. No significant atherosclerotic disease. - 2D echo (03/20/18): - Normal left ventricular size. Wall thickness is normal. The left ventricular systolic function is normal with an estimated ejection fraction in the range of 60-65%. Trace mitral valve regurgitation. The estimated pulmonary arterial pressure is 53 mmHg. - Neurology is following. - Pt is on permissive HTN - No signs of obvious stroke or brain masses/lesions or aneurysms on imaging. Pt denies any headaches. - Of note, the pt is still having double vision when she has both eyes open but if she closes either eye the double vision improves. Her left eye is also not tracking medially (adducting) well, possibly related to CN 3 palsy. She reports poor diabetes control. - PT and OT evaluated - ST evaluated and she passed swallow evaluation. - Await Neurology re-evaluation today. - Cont. ASA - Pt does have hx of lupus HTN - Pts home meds were held for permissive HTN - Monitor - PRN Clonidine Diabetes mellitus - NovoLog SSI - Accu checks ADDENDUM: - After re-evaluation this afternoon she is still having some issues with the left eye tracking medically but seems slightly better. This is likely related to a CN 3 palsy. 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 - Recommend patching of the left eye when ambulating. - Pt should not drive due to diplopia - Discussed importance of improved diabetes control - Pts PCP, Dr. Rodriguez, was notified of the pts condition and recommendations and she is to followup with him in 1 week. Attending Attestation Patient examined. Assessment and plan formulated with Yun Fatima PA-C. I agree with the above. 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 She had diplopia and difficulty ambulating. Seems to be improving with her left eye adduction and less diplopia. could be microvascular dz. neuroimaging no evidence for acute cva mass, hemorrhage or aneurysm. seen by neurology. called pcp. needs good dm and sle control. Pt says her dm control is worst ever. Progress Note: Quality VTE Deep Vein Thrombosis/Pulmonary Embolism Present on Admission: No _ (1) Diabetes Qualifiers: Chronic kidney disease stage: Diabetes mellitus complication detail: Diabetes mellitus complication status: Diabetes mellitus snf insulin use : Diabetes mellitus macular edema: Diabetes mellitus type: Diabetic retinopathy severity: Laterality: Proliferative retinopathy type: (2) Hypertension Qualifiers: Hypertension type: essential hypertension Qualified Code(s): I10 - Essential (primary) hypertension
[2018-03-20 11:19] VITALS: BP 144/65; PULSE 71; TEMP 99.3; O2SAT 97
--- NOTE | 2018-03-20 13:19 | ECHRPT ---
Indication: CVA/TIA CONCLUSIONS Normal left ventricular size. Wall thickness is normal. The left ventricular systolic function is normal with an estimated ejection fraction in the range of 60-65%. Trace mitral valve regurgitation. The estimated pulmonary arterial pressure is 53 mmHg. BP: / HR: Rhythm: MEASUREMENTS (Male / Female) Normal Values Technical Quality:Very technically difficult study 2D ECHO LV Diastolic Diameter PLAX 4.3 cm 4.2 - 5.9 / 3.9 - 5.3 cm LV Systolic Diameter PLAX 2.9 cm IVS Diastolic Thickness 0.9 cm 0.6 - 1.0 / 0.6 - 0.9 cm LVPW Diastolic Thickness 0.9 cm 0.6 - 1.0 / 0.6 - 0.9 cm LV Relative Wall Thickness 0.4 RV Internal Dim ED PLAX 3.0 cm LVOT Diameter 2.0 cm Aortic Root Diameter 2.6 cm LA Systolic Diameter LX 3.6 cm 3.0 - 4.0 / 2.7 - 3.8 cm M-MODE Aortic Root Diameter MM 2.7 cm LA Systolic Diameter MM 4.2 cm LA Ao Ratio MM 1.6 AV Cusp Separation MM 1.9 cm DOPPLER AV Peak Velocity 128.0 cm/s AV Peak Gradient 6.6 mmHg LVOT Peak Velocity 113.0 cm/s LVOT Peak Gradient 5.1 mmHg AV Area Cont Eq pk 2.9 cm Mitral E Point Velocity 88.8 cm/s Mitral A Point Velocity 122.0 cm/s Mitral E to A Ratio 0.7 TR Peak Velocity 328.0 cm/s TR Peak Gradient 43.0 mmHg Right Atrial Pressure 10.0 mmHg Pulmonary Artery Systolic Pressu 53.0 mmHg Right Ventricular Systolic Press 53.0 mmHg PV Peak Velocity 90.3 cm/s PV Peak Gradient 3.3 mmHg FINDINGS LEFT VENTRICLE Normal left ventricular size. Wall thickness is normal. The left ventricular systolic function is normal with an estimated ejection fraction in the range of 60-65%. RIGHT VENTRICLE Normal right ventricular size and systolic function. LEFT ATRIUM The left atrial size is normal. RIGHT ATRIUM The right atrial size is normal. ATRIAL SEPTUM Normal atrial septal thickness without atrial level shunting by limited color doppler interrogation. AORTA The aortic root and proximal ascending aorta are normal in size on limited imaging. MITRAL VALVE Trace mitral valve regurgitation. AORTIC VALVE Trileaflet aortic valve. No aortic valve stenosis or regurgitation. TRICUSPID VALVE The estimated pulmonary arterial pressure is 53 mmHg. PULMONARY VALVE No pulmonary valve regurgitation or stenosis. VESSELS The inferior vena cava is normal in size. PERICARDIUM No pericardial effusion. Tami Main MD, FACC (Electronically Signed) Final Date:20 March 2018 13:19
--- NOTE | 2018-03-20 15:04 | P.DCO ---
Diagnosis (1) Neurological deficit, transient: Status: Acute (2) Diabetes: Status: Chronic (3) Hypercholesteremia: Status: Chronic (4) Hypertension: Status: Acute Physical Therapy Order: Evaluate and treat Occupational Therapy Order: Evaluate and treat Home Health Nursing Order: Signs/symptoms of disease process and Nursing assessment with vital signs Case Management Consult Case Management Consult-Home Health: Yes I have seen patient Elizabeth Wayne on 03/20/18. My clinical findings support the need for the requested home health care services because: Deconditioned with increased weakness I certify that my clinical findings support that this patient is homebound because: Unsteady gait/balance _ (1) Diabetes Qualifiers: Chronic kidney disease stage: Diabetes mellitus complication detail: Diabetes mellitus complication status: Diabetes mellitus care home insulin use : Diabetes mellitus macular edema: Diabetes mellitus type: Diabetic retinopathy severity: Laterality: Proliferative retinopathy type: (2) Hypertension Qualifiers: Hypertension type: essential hypertension Qualified Code(s): I10 - Essential (primary) hypertension
[2018-03-20 16:44] LABS: Hemoglobin A1c 8.9 % (4.3-6.0)
== END 2018-03-20 15:16 | disposition home health service (06) ==
LOC: NEDA 18:12 → NEPC 18:12 → NEPHCDU 23:08
PROVIDERS: ADMIT Hospitalist; ATTEND Hospitalist